=== PATIENT | female | born 1980 | race Caucasian/White ===

== ENCOUNTER 2024-12-31 15:26 | Emergency (ER) | payer MEDICAID ==
[~2024-12-31] VITALS: Ht 162.6 cm; Wt 84.1 kg
[2024-12-31 16:04] VITALS: BP 143/98; PULSE 111; RESP 20; TEMP 98.2; O2SAT 99
--- NOTE | 2024-12-31 16:09 | Physician Documentation ---
History of Present Illness ~ Stated Complaint: ANXIETY/PANIC ATTACKS Time Seen by MD: 16:48 OK to notify your PCP?: Yes Source: patient Mode of Arrival: POV Exam Limitations: no limitations HPI 44-year-old female presents with anxiety and panic disorder. She denies any suicidal or homicidal ideation. States she has been taking buspirone 10 mg 3 times a day for her anxiety but it appears to not be working any longer. She has continued to take this medication and has been set up for therapy. She is requesting further services to help her manage her anxiety with another medication until she can see her regular provider. Medication Reconciliation Allergies: Coded Allergies: hydrocodone (Verified Allergy, Unknown, 12/31/24) Scheduled Hydroxyzine Hcl* (Atarax*), 1 TAB PO Q12H Review of Systems All Other Systems at this time: Reviewed and Negative Physical Exam Physical Exam General: Alert, no apparent distress. HEENT: PERRL, EOMI, no injection, moist mucous membranes. Neck: Full range of motion. Respiratory: Lungs clear, no respiratory distress. Chest: No accessory muscle use. Cardiovascular: Regular rate and rhythm, no murmurs. Extremities: Normal range of motion, no deformity. Neurologic: Oriented x4. Psychiatric: slightly anxious appearing. Skin: Normal color, warm and dry. No edema, no ecchymosis. Progress Results/Orders Results/Orders Vital Signs 12/31/24 16:04 Temp 98.2 Pulse 111 Resp 20 B/P (MAP) 143/98 Pulse Ox 99 O2 Flow Rate 0 Medical Decision Making Findings Patient does not present with any concerns of suicide ideation homicidal ideation or being gravely disabled. I do think that she would benefit from a prescription of Atarax to help with the sleep and anxiety at night. He is that is when her anxiety is the worst he is going to be followed by primary care and other modalities of psychiatric treatment what she is already establish Departure Disposition: 01 HOME / SELF CARE / HOMELESS Impression: Primary Impression: Anxiety Discharge Instructions: Panic Attack Referrals: NO PRIMARY CARE PROVIDER (PCP) Prescriptions Hydroxyzine Hcl* (Atarax*) 25 Mg Tablet 1 TAB PO Q12H for anxiety for 30 Days, #60 TAB Prov: ETHAN HUTCHISON BENEFIT AUTHORIZER 12/31/24 Education Educated: Patient Educated regarding: diagnosis Additional Comment Medical Screen Exam This patient recieved a medical screening examination. After reviewing the individual's medical complaints with presenting symptoms and performing an appropriate physical examination, it was determined that no emergency medical condition is present. This individual is also not a women having contractions. Signature Scribe Signature: y Attestation: The note accurately reflects work and decisions made by me.Ethan Rucker NP 12/31/24 17:19 FANNY ELACH December 31, 2024 16:09 ETHAN HUTCHISON NP December 31, 2024 17:16
[2024-12-31] MEDS ORDERED: HYDR-3686 PO (17:15)
== END 2024-12-31 17:26 | disposition home or self-care (01) ==
LOC: ER 15:27
DX: F41.0 Panic disorder [episodic paroxysmal anxiety] (principal); Z79.899 Other long term (current) drug therapy; Z88.5 Allergy status to narcotic agent
CPT/HCPCS: 99283

== ENCOUNTER 2025-01-18 04:06 | Emergency (ER) | payer MEDICAID ==
[~2025-01-18] VITALS: Ht 162.6 cm; Wt 85.8 kg
[~2025-01-18 04:06] MED LIST: HYDR-3686 PO
[2025-01-18 04:20] VITALS: BP 123/85; PULSE 76; RESP 16; TEMP 97.9; O2SAT 99
[2025-01-18] MEDS ORDERED: ZOLP-678 PO ×2 (04:55→04:56)
--- NOTE | 2025-01-18 04:56 | Physician Documentation ---
History of Present Illness ~ Chief Complaint: Anxiety Stated Complaint: ANXIETY Time Seen by MD: 04:41 HPI Patient presents to the emergency room with chief complaint of anxiety and insomnia. She has problems sleeping and has been using Benadryl however this has become less effective. She saw a walk-in clinic yesterday where he is prescribed trazodone however she vomited shortly after taking it and still can not sleep. Medication Reconciliation Allergies: Coded Allergies: codeine (Verified Allergy, Unknown, NAUSEA, 01/18/25) guaifenesin (Verified Allergy, Unknown, HALLUCINATE, 01/18/25) hydrocodone (Verified Allergy, Unknown, 12/31/24) Scheduled Hydroxyzine Hcl* (Atarax*), 1 TAB PO Q12H Review of Systems ROS All review of systems negative except as per HPI Physical Exam Vital Signs: Temperature: 97.9, Source: Temporal, Heart Rate: 76, Respiratory Rate: 16, BP: 123/85, Pulse Oximetry: 99, Weight: 85.850 Oxygen Flow Rate: 0 Physical Exam General: Patient is awake, alert, oriented x4 in no acute distress. Anxious Head: Normocephalic and atraumatic. Eyes: Conjunctival normal. EOMI. PERRL. ENT: Mucous membranes moist. Neck: Supple, trachea is midline. Chest: Clear to auscultation bilaterally without rales, rhonchi, or wheezes. There is no accessory muscle use or retractions. Cardiac: RRR without murmurs, gallops, or rubs. Progress Results/Orders Results/Orders Orders - MAGNUS COUCH MD Zolpidem Tablet (Ambien Tablet) (01/18/25 04:55) Vital Signs 01/18/25 04:20 Temp 97.9 Pulse 76 Resp 16 B/P (MAP) 123/85 Pulse Ox 99 O2 Flow Rate 0 Medical Decision Making Findings Patient presents to the emergency room with anxiety insomnia as per HPI. I do not believe she was gravely disabled. I will give her Ambien and hand to take when she gets home. She has acknowledged that will be least 5:00 a.m. by the time she gets home but this would be okay for her. Departure Disposition: HOME / SELF CARE / HOMELESS Impression: Primary Impression: Anxiety Additional Impression: Insomnia Condition: Fair Discharge Instructions: Insomnia, Managing Anxiety, Adult Additional Instructions: Call your doctor tomorrow to arrange for close follow up Referrals: NO PRIMARY CARE PROVIDER (PCP) Prescriptions Zolpidem Tartrate (Ambien) 5 Mg Tablet 1 TAB PO HSPRN PRN for sleep, #5 TAB 0 Refills Prov: MAGNUS COUCH MD 01/18/25 Education Educated: Patient Educated regarding: diagnosis, treatment, need for follow up Signature Scribe Signature: No scribe Attestation: The note accurately reflects work and decisions made by me.Magnus Couch MD 01/18/25 04:56 MAGNUS COUCH MD Jan 18, 2025 04:56
[2025-01-18] MEDS: zolpidem 5mg tablet PO ONE (05:08)
[2025-01-18] MEDS: ondansetron 4mg rapidly disintigrating tab PO ONE (05:08)
== END 2025-01-18 05:12 | disposition home or self-care (01) ==
LOC: ER 04:06
DX: F41.9 Anxiety disorder, unspecified (principal); G47.00 Insomnia, unspecified; Z88.5 Allergy status to narcotic agent; Z79.899 Other long term (current) drug therapy
CPT/HCPCS: 99283

== ENCOUNTER 2025-01-25 23:56 | Emergency (ER) | payer MEDICAID ==
[~2025-01-25] VITALS: Ht 162.6 cm; Wt 73.8 kg
[~2025-01-25 23:56] MED LIST changes: +ZOLP-678 PO
[2025-01-26 00:09] VITALS: BP 147/85; PULSE 119; RESP 17; TEMP 97.6; O2SAT 99
--- NOTE | 2025-01-26 00:54 | Physician Documentation ---
HPI ~ General Chief Complaint: Medication Request Stated Complaint: INSOMNIA Time Seen by MD: 00:53 History of Present Illness HPI Comments Patient presents to the emergency room with insomnia. She was seen here recently by myself and Masoud worked well for her. She has a doctor's appointment tomorrow with her primary care. Medication Reconciliation Allergies: Coded Allergies: codeine (Verified Allergy, Unknown, NAUSEA, 01/26/25) guaifenesin (Verified Allergy, Unknown, HALLUCINATE, 01/26/25) hydrocodone (Verified Allergy, Unknown, 01/26/25) Scheduled Hydroxyzine Hcl* (Atarax*), 1 TAB PO Q12H Scheduled PRN Zolpidem Tartrate (Ambien), 1 TAB PO HSPRN PRN for sleep Review of Systems ROS All review of systems negative except as per HPI Physical Exam Physical Exam Vital Signs: Temperature: 97.6, Source: Temporal, Heart Rate: 119, Respiratory Rate: 17, BP: 147/85, Pulse Oximetry: 99, Weight: 73.800 Physical Exam General: Patient is awake, alert, oriented x4 in no acute distress and well appearing.~ Head: Normocephalic and atraumatic. Eyes: Conjunctival normal. EOMI. PERRL. ENT: Mucous membranes moist. Neck: Supple, trachea is midline. Chest: Clear to auscultation bilaterally without rales, rhonchi, or wheezes. There is no accessory muscle use or retractions. Cardiac: RRR without murmurs, gallops, or rubs. Progress Results/Orders Results/Orders Vital Signs 01/26/25 00:09 Temp 97.6 Pulse 119 Resp 17 B/P (MAP) 147/85 Pulse Ox 99 Medical Decision Making Findings We will treat patient for insomnia. Masoud has worked well for her. Discussed with her that this is of habit forming drug and that she needs to follow up with her doctor for additional medications. I will give her a small amount to tide her over. Departure Disposition: HOME / SELF CARE / HOMELESS Impression: Primary Impression: Insomnia Condition: Stable Discharge Instructions: Insomnia Referrals: NO PRIMARY CARE PROVIDER (PCP) Prescriptions Zolpidem Tartrate* (Ambien*) 5 Mg Tablet 1 TAB PO HS PRN for INSOMNIA, #3 TAB Prov: MAGNUS COUCH MD 01/26/25 Signature Scribe Signature: No scribe Attestation: The note accurately reflects work and decisions made by me.Magnus Couch MD 01/26/25 01:02 MAGNUS COUCH MD Jan 26, 2025 00:54
[2025-01-26] MEDS ORDERED: ZOLP5TAB8 PO (01:02)
[2025-01-26] MEDS: zolpidem 5mg tablet PO ONE (01:13)
== END 2025-01-26 01:16 | disposition home or self-care (01) ==
LOC: ER 23:56
DX: G47.00 Insomnia, unspecified (principal); Z88.5 Allergy status to narcotic agent; Z88.8 Allergy status to other drugs, medicaments and biological substances
CPT/HCPCS: 99283